=== PATIENT | male | born 1955 | race Caucasian/White ===

== ENCOUNTER 2023-02-27 12:10 | Inpatient (IN) | payer MEDICARE ==
[~2023-02-27] VITALS: Ht 180.3 cm; Wt 59.0 kg
[2023-02-27 13:26] LABS: BASOPHILS % (AUTO) 0.9 % (0-1); EOSINOPHILS % (AUTO) 0.5 % (0-6); HEMATOCRIT 45.8 % (42.0-52.0); HEMOGLOBIN 15.7 g/dl (14.0-17.9); LYMPHOCYTES # (AUTO) 0.9 X10'3 (1.1-4.8); LYMPHOCYTES % (AUTO) 22.4 % (21-51); MEAN CORPUSCULAR HEMOGLOBIN 35.4 PG (27.0-31.0); MEAN CORPUSCULAR HGB CONC 34.2 g/dL (33.0-36.5); MEAN CORPUSCULAR VOLUME 103.3 FL (78-98); MEAN PLATELET VOLUME 8.5 FL (7.4-10.4); MONOCYTES # (AUTO) 0.4 X10'3 (0-0.9); MONOCYTES % (AUTO) 10.6 % (2-12); NEUTROPHILS # (AUTO) 2.7 X10'3 (1.8-7.7); NEUTROPHILS % (AUTO) 65.6 % (42-75); PLATELET COUNT 98 X10'3 (140-440); RED BLOOD COUNT 4.43 X10'6 (4.70-6.10); RED CELL DISTRIBUTION WIDTH 14.8 % (11.5-14.5)
[2023-02-27 13:49] LABS: ALANINE AMINOTRANSFERASE 36 U/L (12-78); ALBUMIN 3.4 G/DL (3.4-5.0); ALBUMIN/GLOBULIN RATIO 1.1 (1.1-1.5); ALKALINE PHOSPHATASE 70 IU/L (46-116); ANION GAP 7 (8-16); ASPARTATE AMINO TRANSFERASE 36 U/L (10-37); BILIRUBIN,TOTAL 0.4 MG/DL (0.1-1.0); BLOOD UREA NITROGEN 7 MG/DL (7-18); BUN/CREATININE RATIO 9.3 (10.0-20.0); CALCIUM 8.5 MG/DL (8.5-10.1); CHLORIDE 99 MMOL/L (99-107); CREATININE 0.75 MG/DL (0.60-1.10); GLUCOSE 102 MG/DL (70-104); POTASSIUM 4.4 MMOL/L (3.5-5.1); SODIUM 133 MMOL/L (135-145); TOTAL CARBON DIOXIDE 27.1 MMOL/L (24-32); TOTAL PROTEIN 6.5 G/DL (6.4-8.2); eCRCL 79 ML/MIN; eGFR > 90 ML/MIN
[2023-02-27] MEDS ORDERED: iohexol 300mg/ml 100ml inj. ONE (13:54)
[2023-02-27 13:57] LABS: PRO BRAIN NATRIURETIC PEPTIDE 631 PG/ML (0-125)
--- NOTE | 2023-02-27 14:54 | NUR ---
Pt having financial hardship and his house is being foreclosed, depressed and wishes he would go to sleep and not wake up in the morning. Dr Sosa made aware.
[2023-02-27] MEDS ORDERED: aspirin 81mg tab.chew PO ONE (15:00)
[2023-02-27] MEDS ORDERED: methylPREDNISolone sod succ 125mg/2ml vial IV ONE (15:05)
[2023-02-27] MEDS ORDERED: albuterol 2.5 MG/3 ML nebule NEB ONE (15:05)
[2023-02-27] MEDS ORDERED: normal saline 1000ML IV soln IVB ONE (15:05)
[2023-02-27 15:25] LABS: MAGNESIUM 1.8 MG/DL (1.5-2.4)
[2023-02-27 15:28] LABS: APTT 39 SECONDS (22-32); INR 2.9 INR; PROTHROMBIN TIME 29.2 SECONDS (9.0-12.0)
[2023-02-27] MEDS ORDERED: CefTRIAXone 2gm/D5W 50ml BAG 50 ML IV ONE (15:30)
[2023-02-27] MEDS ORDERED: azithromycin/NS 500mg/250ml 250 ML IV ONE (15:30)
[2023-02-27 15:36] VITALS: PULSE 84; RESP 14; O2SAT 94
[2023-02-27 15:43] VITALS: PULSE 86; RESP 18; O2SAT 95
[2023-02-27] MEDS ORDERED: magnesium Cl slow-release 64mg tablet PO PRN (16:25)
[2023-02-27] MEDS ORDERED: potassium Cl 20 mEq SR tablet PO PRN ×2 (16:25)
[2023-02-27] MEDS ORDERED: mag hydrox/Alum hydrox/simeth 30ml oral suspension PO PRN (16:25)
[2023-02-27] MEDS ORDERED: magnesium 2GM in 50ml NS 50 ML IV PRN (16:25)
[2023-02-27] MEDS ORDERED: acetaminophen 325mg tablet PO PRN (16:25)
[2023-02-27] MEDS ORDERED: ondansetron/PF 4mg/2ml inj IV PRN (16:25)
[2023-02-27] MEDS ORDERED: magnesium 4gm in 100ml NS 100 ML IV PRN (16:25)
[2023-02-27] MEDS ORDERED: potassium Cl 40MEQ/1/2NS 520ml 520 ML IV PRN (16:25)
[2023-02-27] MEDS ORDERED: magnesium hydroxide 30ml (MOM) UD suspension PO PRN (16:25)
[2023-02-27] MEDS ORDERED: CARV25TA2 PO (16:48)
[2023-02-27] MEDS ORDERED: WARF6TAB49 PO (16:48)
[2023-02-27] MEDS ORDERED: LISI40TA13 PO (16:48)
[2023-02-27] MEDS ORDERED: HYDR25TA4 PO (16:48)
[2023-02-27] MEDS ORDERED: labetalol 20mg/4ml (5mg/ml) syringe IV ONE (16:50)
[2023-02-27] MEDS ORDERED: ipratropium/albuterol 3ml nebule NEB PRN (16:55)
[2023-02-27] MEDS ORDERED: ipratropium/albuterol 3ml nebule NEB SCH (18:00)
[2023-02-27 19:27] VITALS: PULSE 74; RESP 18; O2SAT 96
[2023-02-27 19:35] VITALS: PULSE 67; RESP 18
[2023-02-27] MEDS ORDERED: methylPREDNISolone sod succ/PF 40mg inj. IV SCH (20:00)
[2023-02-27] MEDS: K and/or MAG REPLACEMENT MC SCH (20:04)
[2023-02-27] MEDS: carVEDilol 12.5mg tablet PO SCH (20:09)
[2023-02-27] MEDS: docusate sod 100mg capsule PO SCH (20:09)
[2023-02-27] MEDS ORDERED: warfarin 3mg tablet PO ONE (21:00)
--- NOTE | 2023-02-27 21:50 | NUR ---
assumed care from gopi brooks. pt placed on hospital bed and moved to rm 1.
[2023-02-27 23:03] VITALS: PULSE 60; RESP 18; O2SAT 97
[2023-02-27] MEDS: ipratropium/albuterol 3ml nebule NEB SCH (23:03)
[2023-02-27 23:12] VITALS: PULSE 62; RESP 16
[2023-02-28] VITALS (18 sets, daily range): BP systolic 120–163; BP diastolic 62–79; PULSE 62–81; RESP 14–19; TEMP 97.2–98.2; O2SAT 90–98
[2023-02-28] MEDS: methylPREDNISolone sod succ/PF 40mg inj. IV SCH ×3 (00:15→17:13)
--- NOTE | 2023-02-28 00:20 | NUR ---
attempted to call report to floor. rn recieving icu pt and will call back for report.
--- NOTE | 2023-02-28 01:00 | NUR ---
atempted to call report to floor, rn unavailable, said would call back in 15 min.
--- NOTE | 2023-02-28 01:29 | NUR ---
attempted to call report to floor again, abby beckford
[2023-02-28] MEDS ORDERED: SIMV80TA89 PO (02:51)
[2023-02-28] MEDS: ipratropium/albuterol 3ml nebule NEB SCH ×6 (03:06→23:27)
[2023-02-28 07:07] LABS: BASOPHILS % (AUTO) 0.1 % (0-1); EOSINOPHILS % (AUTO) 0 % (0-6); HEMATOCRIT 44.1 % (42.0-52.0); HEMOGLOBIN 14.9 g/dl (14.0-17.9); LYMPHOCYTES # (AUTO) 0.5 X10'3 (1.1-4.8); LYMPHOCYTES % (AUTO) 13.5 % (21-51); MEAN CORPUSCULAR HEMOGLOBIN 35.3 PG (27.0-31.0); MEAN CORPUSCULAR HGB CONC 33.9 g/dL (33.0-36.5); MEAN CORPUSCULAR VOLUME 104.2 FL (78-98); MEAN PLATELET VOLUME 8.8 FL (7.4-10.4); MONOCYTES # (AUTO) 0.1 X10'3 (0-0.9); MONOCYTES % (AUTO) 2.6 % (2-12); NEUTROPHILS # (AUTO) 2.9 X10'3 (1.8-7.7); NEUTROPHILS % (AUTO) 83.8 % (42-75); PLATELET COUNT 85 X10'3 (140-440); RED BLOOD COUNT 4.24 X10'6 (4.70-6.10); WHITE BLOOD COUNT 3.5 X10'3 (4.5-11.0)
[2023-02-28 07:21] LABS: INR 2.3 INR; PROTHROMBIN TIME 23.6 SECONDS (9.0-12.0)
[2023-02-28 07:22] LABS: ALANINE AMINOTRANSFERASE 35 U/L (12-78); ALBUMIN 3.1 G/DL (3.4-5.0); ALKALINE PHOSPHATASE 68 IU/L (46-116); ANION GAP 6 (8-16); ASPARTATE AMINO TRANSFERASE 28 U/L (10-37); BILIRUBIN,TOTAL 0.6 MG/DL (0.1-1.0); BLOOD UREA NITROGEN 12 MG/DL (7-18); BUN/CREATININE RATIO 15.6 (10.0-20.0); CALCIUM 8.6 MG/DL (8.5-10.1); CHLORIDE 99 MMOL/L (99-107); CREATININE 0.77 MG/DL (0.60-1.10); GLUCOSE 153 MG/DL (70-104); MAGNESIUM 1.9 MG/DL (1.5-2.4); PHOSPHORUS 3.3 MG/DL (2.3-4.5); POTASSIUM 4.9 MMOL/L (3.5-5.1); SODIUM 133 MMOL/L (135-145); TOTAL CARBON DIOXIDE 27.6 MMOL/L (24-32); TOTAL PROTEIN 6.1 G/DL (6.4-8.2); eCRCL 77 ML/MIN; eGFR > 90 ML/MIN
[2023-02-28] MEDS: CefTRIAXone/D5W-Rocephin 1gm 50 ML IV SCH (08:13)
[2023-02-28] MEDS: HYDROchlorothiazide 25mg tablet PO SCH (08:14)
[2023-02-28] MEDS: carVEDilol 12.5mg tablet PO SCH ×3 (08:14→21:14)
[2023-02-28] MEDS: azithromycin 250mg tablet PO SCH (08:14)
[2023-02-28] MEDS: lisinopril 20mg tablet PO SCH (08:14)
[2023-02-28] MEDS: K and/or MAG REPLACEMENT MC SCH ×2 (08:15→20:00)
[2023-02-28] MEDS: docusate sod 100mg capsule PO SCH ×2 (08:15→21:14)
--- NOTE | 2023-02-28 18:15 | NUR ---
Patient in room PCU 3018. I have received report from JULIO CESAR BARNETT and had the opportunity to ask questions and assume patient care.
[2023-02-28] MEDS ORDERED: warfarin 3mg tablet PO ONE (21:00)
[2023-03-01] VITALS (15 sets, daily range): BP systolic 129–158; BP diastolic 68–79; PULSE 66–94; RESP 14–18; TEMP 97.2–98.2; O2SAT 93–100
[2023-03-01] MEDS: methylPREDNISolone sod succ/PF 40mg inj. IV SCH ×4 (00:08→23:52)
[2023-03-01] MEDS: temazepam 15mg capsule PO PRN (01:13)
[2023-03-01] MEDS: ipratropium/albuterol 3ml nebule NEB SCH ×6 (03:00→22:22)
--- NOTE | 2023-03-01 06:20 | NUR ---
Problems reprioritized. Patient report given, questions answered & plan of care reviewed with JULIO CESAR BARNETT.
[2023-03-01 06:30] LABS: BASOPHILS % (AUTO) 0.1 % (0-1); EOSINOPHILS % (AUTO) 0 % (0-6); HEMATOCRIT 42.3 % (42.0-52.0); HEMOGLOBIN 14.6 g/dl (14.0-17.9); LYMPHOCYTES # (AUTO) 0.5 X10'3 (1.1-4.8); MEAN CORPUSCULAR HEMOGLOBIN 36.1 PG (27.0-31.0); MEAN CORPUSCULAR HGB CONC 34.7 g/dL (33.0-36.5); MEAN CORPUSCULAR VOLUME 104.1 FL (78-98); MEAN PLATELET VOLUME 9.2 FL (7.4-10.4); MONOCYTES # (AUTO) 0.2 X10'3 (0-0.9); MONOCYTES % (AUTO) 2.4 % (2-12); NEUTROPHILS # (AUTO) 8.9 X10'3 (1.8-7.7); NEUTROPHILS % (AUTO) 92.5 % (42-75); PLATELET COUNT 79 X10'3 (140-440); RED BLOOD COUNT 4.06 X10'6 (4.70-6.10); WHITE BLOOD COUNT 9.6 X10'3 (4.5-11.0)
[2023-03-01 06:40] LABS: INR 2.8 INR; PROTHROMBIN TIME 28.2 SECONDS (9.0-12.0)
[2023-03-01 06:52] LABS: ALANINE AMINOTRANSFERASE 33 U/L (12-78); ALBUMIN 3.2 G/DL (3.4-5.0); ALBUMIN/GLOBULIN RATIO 1.1 (1.1-1.5); ALKALINE PHOSPHATASE 56 IU/L (46-116); ANION GAP 6 (8-16); ASPARTATE AMINO TRANSFERASE 21 U/L (10-37); BILIRUBIN,TOTAL 0.6 MG/DL (0.1-1.0); BLOOD UREA NITROGEN 19 MG/DL (7-18); BUN/CREATININE RATIO 21.8 (10.0-20.0); CALCIUM 9.3 MG/DL (8.5-10.1); CHLORIDE 96 MMOL/L (99-107); CHOL/HDL RATIO 1.9 (0.00-4.99); CHOLESTEROL 123 MG/DL (0-200); CREATININE 0.87 MG/DL (0.60-1.10); GLUCOSE 146 MG/DL (70-104); HDL CHOLESTEROL 66 MG/DL (35-60); PHOSPHORUS 4.3 MG/DL (2.3-4.5); POTASSIUM 4.6 MMOL/L (3.5-5.1); SODIUM 133 MMOL/L (135-145); TOTAL CARBON DIOXIDE 30.8 MMOL/L (24-32); TOTAL PROTEIN 6.2 G/DL (6.4-8.2); TRIGLYCERIDES 40 MG/DL (20-135); eCRCL 68 ML/MIN; eGFR 87 ML/MIN
[2023-03-01 07:18] LABS: LDL CHOLESTEROL 39 MG/DL (50-100)
[2023-03-01] MEDS: K and/or MAG REPLACEMENT MC SCH ×2 (08:00→19:12)
[2023-03-01] MEDS: CefTRIAXone/D5W-Rocephin 1gm 50 ML IV SCH (09:18)
[2023-03-01] MEDS: docusate sod 100mg capsule PO SCH ×2 (09:19→19:36)
[2023-03-01] MEDS: carVEDilol 12.5mg tablet PO SCH ×2 (09:19→19:36)
[2023-03-01] MEDS: azithromycin 250mg tablet PO SCH (09:20)
[2023-03-01] MEDS: lisinopril 20mg tablet PO SCH (09:20)
[2023-03-01] MEDS: HYDROchlorothiazide 25mg tablet PO SCH (09:20)
--- NOTE | 2023-03-01 19:29 | NUR ---
bid cARVEDILOL HAS BEEN GIVEN PRESCRIBED BUT DOCUMENTED OFF SCHEDULE. pER SPEAKING WITH PHARMACIST, ORDER THE EVENING DOSE 1 TIME DOSE TO CATCH UP AND UP BID DOSES BACK ON SCHEDULE.
[2023-03-01] MEDS ORDERED: carVEDilol 12.5mg tablet PO ONE (19:30)
[2023-03-01] MEDS ORDERED: warfarin 3mg tablet PO ONE (21:00)
[2023-03-02] VITALS (16 sets, daily range): BP systolic 130–157; BP diastolic 68–78; PULSE 60–91; RESP 12–20; TEMP 97–97.8; O2SAT 9–100
[2023-03-02] MEDS: temazepam 15mg capsule PO PRN (00:05)
[2023-03-02] MEDS: ipratropium/albuterol 3ml nebule NEB SCH ×4 (03:00→14:53)
--- NOTE | 2023-03-02 06:40 | NUR ---
Patient in room PCU 3018. I have received report from JULIO CESAR Roberson and had the opportunity to ask questions and assume patient care.
--- NOTE | 2023-03-02 06:42 | NUR ---
Patient report given, questions answered & plan of care reviewed with JULIO CESAR Ventura
[2023-03-02 07:09] LABS: BASOPHILS % (AUTO) 0.1 % (0-1); EOSINOPHILS % (AUTO) 0 % (0-6); HEMOGLOBIN 15.9 g/dl (14.0-17.9); LYMPHOCYTES # (AUTO) 0.4 X10'3 (1.1-4.8); LYMPHOCYTES % (AUTO) 4.7 % (21-51); MEAN CORPUSCULAR HEMOGLOBIN 35.3 PG (27.0-31.0); MEAN CORPUSCULAR HGB CONC 33.8 g/dL (33.0-36.5); MEAN CORPUSCULAR VOLUME 104.4 FL (78-98); MEAN PLATELET VOLUME 9.7 FL (7.4-10.4); MONOCYTES # (AUTO) 0.2 X10'3 (0-0.9); MONOCYTES % (AUTO) 2.6 % (2-12); NEUTROPHILS # (AUTO) 7.9 X10'3 (1.8-7.7); NEUTROPHILS % (AUTO) 92.6 % (42-75); PLATELET COUNT 89 X10'3 (140-440); RED BLOOD COUNT 4.51 X10'6 (4.70-6.10); RED CELL DISTRIBUTION WIDTH 14.8 % (11.5-14.5); WHITE BLOOD COUNT 8.5 X10'3 (4.5-11.0)
[2023-03-02 07:15] LABS: INR 2.4 INR
[2023-03-02 07:31] LABS: ALANINE AMINOTRANSFERASE 33 U/L (12-78); ALBUMIN 3.5 G/DL (3.4-5.0); ALBUMIN/GLOBULIN RATIO 1.1 (1.1-1.5); ALKALINE PHOSPHATASE 60 IU/L (46-116); ANION GAP 6 (8-16); ASPARTATE AMINO TRANSFERASE 16 U/L (10-37); BILIRUBIN,TOTAL 0.6 MG/DL (0.1-1.0); BLOOD UREA NITROGEN 25 MG/DL (7-18); BUN/CREATININE RATIO 30.1 (10.0-20.0); CALCIUM 8.7 MG/DL (8.5-10.1); CHLORIDE 94 MMOL/L (99-107); CREATININE 0.83 MG/DL (0.60-1.10); GLUCOSE 139 MG/DL (70-104); MAGNESIUM 2.1 MG/DL (1.5-2.4); PHOSPHORUS 4.6 MG/DL (2.3-4.5); POTASSIUM 4.3 MMOL/L (3.5-5.1); SODIUM 131 MMOL/L (135-145); TOTAL CARBON DIOXIDE 31.5 MMOL/L (24-32); TOTAL PROTEIN 6.6 G/DL (6.4-8.2); eCRCL 71 ML/MIN; eGFR > 90 ML/MIN
[2023-03-02] MEDS ORDERED: nitroGLYCERIN 0.4mg SUBLingual tab SL PRN (07:45)
[2023-03-02] MEDS ORDERED: metoprolol tartrate 1mg/ml inj IV PRN (07:45)
[2023-03-02] MEDS ORDERED: aminophylline 250mg/10ml inj. IV PRN (07:45)
[2023-03-02] MEDS ORDERED: regadenoson 0.4mg/5ml syringe IV PRN (07:45)
[2023-03-02] MEDS: K and/or MAG REPLACEMENT MC SCH (08:00)
[2023-03-02] MEDS ORDERED: carVEDilol 12.5mg tablet PO SCH (08:17)
[2023-03-02] MEDS: CefTRIAXone/D5W-Rocephin 1gm 50 ML IV SCH (08:53)
[2023-03-02] MEDS: methylPREDNISolone sod succ/PF 40mg inj. IV SCH (08:54)
[2023-03-02] MEDS: HYDROchlorothiazide 25mg tablet PO SCH (08:57)
[2023-03-02] MEDS: lisinopril 20mg tablet PO SCH (08:57)
[2023-03-02] MEDS: docusate sod 100mg capsule PO SCH (08:58)
[2023-03-02] MEDS: azithromycin 250mg tablet PO SCH (08:58)
[2023-03-02] MEDS ORDERED: magnesium hydroxide 30ml (MOM) UD suspension PO PRN (12:20)
[2023-03-02] MEDS ORDERED: bisacodyl 10mg suppository rectal RC PRN (12:20)
[2023-03-02] MEDS ORDERED: FLUT1BLS4 INH (16:05)
[2023-03-02] MEDS ORDERED: ATOR40TA71 PO (16:05)
[2023-03-02] MEDS ORDERED: ALB0.5UD INH (16:05)
--- NOTE | 2023-03-02 16:25 | NUR ---
DC inst provided to pt. IV DC'd, tip intact. All belongings sent w/pt (All belongings in safe retrieved). Pt ambulated to [facility] ([facility] hospital [facility] to get pt back home to [place]).
[2023-03-02] MEDS ORDERED: PRED20TA PO (16:29)
[2023-03-02] MEDS ORDERED: warfarin 5mg tablet PO ONE (21:00)
[2023-03-02] MEDS ORDERED: atorvastatin 20mg tablet PO SCH (21:00)
== END 2023-03-02 17:25 | disposition home or self-care (01) | DRG 189 ==
LOC: ER 12:10 → ED HOLD 16:30 → UNDOADMIN 16:47 → ED HOLD 16:47 → PCU 3S 02-28 01:25 → ED HOLD 02-28 01:25
PROVIDERS: ADMIT Family Medicine; ATTEND Family Medicine
PROC: BW241ZZ Computerized Tomography (CT Scan) of Chest and Abdomen using Low Osmolar Contrast (ICD-10-PCS; 2023-02-27)
PROC: 4A02XM4 Measurement of Cardiac Total Activity, External Approach (ICD-10-PCS; principal; 2023-03-02)
PROC: 3E073KZ Introduction of Other Diagnostic Substance into Coronary Artery, Percutaneous Approach (ICD-10-PCS; 2023-03-02)
DX: J96.21 Acute and chronic respiratory failure with hypoxia (principal); J43.9 Emphysema, unspecified; F10.20 Alcohol dependence, uncomplicated; F17.210 Nicotine dependence, cigarettes, uncomplicated; I16.0 Hypertensive urgency; E78.5 Hyperlipidemia, unspecified; R07.89 Other chest pain; I48.91 Unspecified atrial fibrillation; I10 Essential (primary) hypertension; Z60.2 Problems related to living alone; R91.1 Solitary pulmonary nodule; I25.10 Atherosclerotic heart disease of native coronary artery without angina pectoris; Z87.442 Personal history of urinary calculi; Z95.1 Presence of aortocoronary bypass graft; Z95.5 Presence of coronary angioplasty implant and graft; Z79.899 Other long term (current) drug therapy; Z71.6 Tobacco abuse counseling
CPT/HCPCS: 36415; 71045; 71260; 78452; 80053; 80061; 83605; 83735; 83880; 84100; 84145; 84484; 85025; 85610; 85730; 87040; 87081; 93005; 93017; 93306; 93971; 94640; 94760; 99285; A6258; A9500; G0378; J0456; J0696; J2920; J2930; J3490; J7030; J7040; Q9967